=== PATIENT | male | born 1965 | race Caucasian/White ===

== ENCOUNTER → 2017-06-22 | Outpatient (CLI) | payer SELFPAY ==
[~2017-06-22] MED LIST: CYCL-36 PO; IBUP800T23 PO
--- NOTE | 2017-06-25 14:07 | RADRPT ---
EXAM DATE/TIME: 06/22/2017 10:52 CONSULT: 51 year-old male with history of 2.5 cm right renal mass noted on lumbar MRI examination and subsequently confirmed with CT and dedicated MRI exams. Mass is partially endophytic and measures up to 2.5 cm in the anterior mid right kidney. Although challenging, the mass is amenable to percutaneo us intervention. Will schedule patient for official intervention radiology clinic consultation to dis cuss treatment options in light of patient's age. Flex Burton MD on June 25, 2017 at 13:47 Board Certified Radiologist. This report was verified electronically.
== END ==
LOC: HRAD 14:10
PROVIDERS: ATTEND Urology
DX: N28.89 Other specified disorders of kidney and ureter (principal)

== ENCOUNTER 2017-06-27 15:10 | Day surgery (SDC) | payer OTHER ==
[2017-06-27 15:36] VITALS: BP 140/79; PULSE 56; RESP 20; TEMP 98; O2SAT 99
--- NOTE | 2017-06-27 16:08 | RADRPT ---
EXAM DATE/TIME: 06/27/2017 15:40 [facility] COMPARISON : INDICATIONS : Consult for cryoablation of right renal mass OBJECTIVE: Temperature: 98.0 Heart Rate: 56 Blood Pressure: 140/79 Respiratory: 20 Oximetry: 99 PNEUMONIA VACCINE: NO HISTORY OF PRESENT ILLNESS: 51-year-old male with history of incidentally discovered 2.7 cm right superior pole renal mass follow ing MRI evaluation for lumbar pain. He is asymptomatic and denies unintentional weight loss, flank pa in or hematuria. PAST MEDICAL HISTORY : 1. Benign prostatic hyperplasia, BPH PAST SURGICAL HISTORY : 1. sterotactic surgery 1997 SOCIAL HISTORY : Social alcohol use. Tobacco;none. ALLERGIES: 1. NKDA MEDICATIONS: 1. None. IMAGING STUDIES: CT examination dated 06/08 2017 and MRI examination dated 06/12/2017 are reviewed. There is a 3 cm solid exophytic anterior mid right renal pole mass without evidence for renal vein invasion or perinephric involvement. ASSESSMENT: 51-year-old male with recently diagnosed 3 cm exophytic solid renal mass in the anterior mid right re nal pole, almost certainly renal cell carcinoma. Extensive discussion regarding treatment options inc luding nephrectomy, partial nephrectomy and percutaneous thermal ablation. He does not have any signi ficant renal dysfunction or other comorbidities. Although technically feasible, I believe he is best served with surgical resection rather than therma l ablation due to his young age and lack of sufficient medical comorbidities necessitating nephron sp aring ablation. This was discussed in detail with the patient. PLAN: Consideration for surgical resection. TIME SPENT: 20 minutes. Flex Burton MD on June 27, 2017 at 15:59 Board Certified Radiologist. This report was verified electronically.
== END 2017-06-27 15:45 | disposition home or self-care (01) ==
LOC: HROP 15:10 → HRIP 15:12 → HROP 15:45
PROVIDERS: ATTEND Urology
DX: D30.00 Benign neoplasm of unspecified kidney (principal)
CPT/HCPCS: 99213; G0463